=== PATIENT | male | born 1955 | race Caucasian/White ===

== ENCOUNTER 2018-09-10 07:22 | Day surgery (SDC) | payer OTHER ==
[~2018-09-10] VITALS: Ht 160 cm; Wt 86.3 kg
[2018-09-10] VITALS (18 sets, daily range): BP systolic 125–154; BP diastolic 68–80; PULSE 57–74; RESP 16–18; Ht 160 cm; Wt 86.3 kg
[~2018-09-10 07:22] MED LIST: CEFAZOLIN 2 GM/50 ML (PMX) 50 ML IVPB SCH
[2018-09-10] MEDS ORDERED: GEMF600T8 PO (07:56)
--- NOTE | 2018-09-10 10:25 | HPN ---
Date/Time of Note Date/Time of Note DATE: 09/10/18 TIME: 10:25 Interval H&P Admission Note Pt. seen H&P reviewed: No system changes EVELYNE PARRISH Sep 10, 2018 10:25
[2018-09-10] MEDS ORDERED: MIDAZOLAM 1 MG/ML 2 ML INJ ONE (11:39)
[2018-09-10] MEDS ORDERED: FENTAnyl 50 MCG/ML VIAL ONE ×2 (11:39→12:33)
--- NOTE | 2018-09-10 12:04 | PREAC ---
Date/Time of Note Date/Time of Note DATE: 09/10/18 TIME: 12:03 Anesthesia Eval and Record Evaluation Time Pre-Procedure Interview DATE: 09/10/18 TIME: 12:03 Age 63 Sex male NPO: 8 hrs Preoperative diagnosis right hydrocele Planned procedure right hydrocelectomy and right spermatocelectomy Past Medical History Past Medical History: Includes Cardio: Dyslipidemia GI: Obesity (bmi 33) Surgery & Anesthesia Issues No known issue Meds Anticoagulation: No Beta Mauro within 24 hr: No Reason Beta Mauro not given: Pt. not on B-Mauro Reported Medications Gemfibrozil* (Gemfibrozil*) 600 Mg Tablet, 600 MG PO BID, TAB 09/10/18 Current Medications Cefazolin Sodium/ Dextrose 50 ml @ 100 mls/hr PREOP IVPB ; Start 09/10/18 at 06:00; Stop 09/10/18 at 17:00 Meds reviewed: Yes Allergies Coded Allergies: No Known Allergy (Unverified , 09/10/18) Allergies Reviewed: Yes Labs/Studies Labs Reviewed: Reviewed by anesthesiologist test: N/A Studies: ECG, CXR Pre-procedure Exam Last vitals Vital Signs Date Temp Pulse Resp B/P (MAP) Pulse Ox O2 O2 Flow FiO2 Time Delivery Rate 09/10/18 97.9 57 16 137/77 95 Room Air 08:21 (97) Airway: Adequate mouth opening, Adequate thyromental dist Mallampati: Mallampati II Teeth: Normal (partial denture already out) Lung: Normal Heart: Normal ASA Physical Status ASA physical status: 2 Emergency: None Planned Anesthetic General/MAC: LMA Planned Pain Management Parenteral pain med, Local by surgeon Pre-operative Attestations Prior to commencing anesthesia and surgery, the patient was re-evaluated, there was verification of: *The patient's identity *The results of appropriate recent lab work and preoperative vital signs *The above evaluation not changing prior to induction *Anesthetic plan, risk benefits, alternative and complications discussed with patient/family; questions answered; patient/family understands, accepts and wishes to proceed. VAZQUEZ DEL REAL Sep 10, 2018 12:04
[2018-09-10] MEDS ORDERED: BUPIVACAINE 0.25% (MPF) 30 ML INJ ONE (12:06)
[2018-09-10] MEDS ORDERED: CEFAZOLIN 1 GM INJ ONE (12:33)
[2018-09-10] MEDS ORDERED: PROPOFOL 20 ML ONE (12:33)
[2018-09-10] MEDS ORDERED: LIDOCAINE 2% (SDV) 5 ML INJ ONE (12:33)
[2018-09-10] MEDS ORDERED: ONDANSETRON 4 MG INJ ONE (12:37)
[2018-09-10] MEDS ORDERED: DEXAMETHASONE 4 MG/ML 5 ML INJ ONE (12:37)
[2018-09-10] MEDS ORDERED: hydrALAzine 20 MG INJ IV PRN (13:30)
[2018-09-10] MEDS ORDERED: MEPERIDINE 25 MG INJ IV PRN (13:30)
[2018-09-10] MEDS ORDERED: HYDROmorphONE 1 MG/5 ML IV SYRINGE IV PRN ×3 (13:30)
[2018-09-10] MEDS ORDERED: ONDANSETRON 4 MG INJ IV PRN (13:30)
[2018-09-10] MEDS ORDERED: OXYCODONE/ACETAMINOPHEN (5/325) TAB PO PRN ×2 (13:30)
[2018-09-10] MEDS ORDERED: LABETALOL HCL 20MG INJ IV PRN (13:30)
--- NOTE | 2018-09-10 13:49 | PDOCDIS ---
Discharge Instructions DIAGNOSIS Discharge Diagnosis Spermatocele an hydrocele - complex CONDITION Preet Patient Condition: [id number] Good HOME CARE INSTRUCTIONS: Preet Diet Instructions: Bola Regular ACTIVITY: Preet Activity Restrictions: [id number] Slowly Increase Activity Preet Bathing Restrictions: [id number] Shower FOLLOW UP/APPOINTMENTS Follow-up Plan Follow up in office next week for removal of drain, call for date and time REFERRALS Preet Referring Provider: EVELYNE Bird OTHER ORDERS: Other Orders: Change dressing as needed there is a drain under the dressing keep wound dry until drain removed Scrotal elevation, keep scrotum higher than heart Light activity no sexual activity EVELYNE PARRISH Sep 10, 2018 13:49
--- NOTE | 2018-09-10 13:52 | OPR ---
Date/Time of Note Date/Time of Note DATE: 09/10/18 TIME: 13:50 Operative Report Procedure Date: Sep 10, 2018 Preoperative Diagnosis righty hydrocele - spermatocele - complex Postoperative Diagnosis same Operation/Procedure Performed right hydrocelectomy, spermatocectomy, lysis of adhesions Surgeon tito Entertainment Manager none Anesthesia Type: general Estimated Blood Loss: minimal Transfusion none Specimen hydrocele and spermatocele Grafts/Implants none Tubes/Drains 1/ " james Complications none Pt Condition Post Procedure: stable Disposition: PACU Indications hydrocele - spermatocele Procedure Description dict [id number] EVELYNE PARRISH Sep 10, 2018 13:52
--- NOTE | 2018-09-10 14:12 | PAC ---
Date/Time of Note Date/Time of Note DATE: 09/10/18 TIME: 14:12 Post-Anesthesia Notes Post-Anesthesia Note Last documented vital signs Vital Signs Date Temp Pulse Resp B/P (MAP) Pulse Ox O2 O2 Flow FiO2 Time Delivery Rate 09/10/18 98.7 13:47 09/10/18 65 17 138/75 99 Nasal 2.0 13:38 (96) Cannula Activity: WNL Respiratory function: WNL Cardiovascular function: WNL Mental status: Baseline Pain reasonably controlled: Yes Hydration appropriate: Yes Nausea/Vomiting absent: Yes VAZQUEZ DEL REAL Sep 10, 2018 14:12
--- NOTE | 2018-09-10 16:00 | OPR ---
DATE OF OPERATION: PREOPERATIVE DIAGNOSIS: Right hydrocele and right spermatocele. POSTOPERATIVE DIAGNOSIS: Markedly complex and adherent right spermatocele and hydrocele. PROCEDURE: Right hydrocelectomy and spermatocelectomy, lysis of adhesions. SURGEON: Evelyne Ni MD ANESTHESIA: General. COMPLICATIONS: None. FINDINGS: Large complex spermatocele and hydrocele, which are adherent to the surrounding tissues. ESTIMATED BLOOD LOSS: Less than 10 mL. DRAINS: 0.25-inch Karla drain. DESCRIPTION OF PROCEDURE: The patient was brought to the operating room and placed on the operating table in supine position. He was prepped and draped in the usual fashion after anesthesia was induce d. A timeout was undertaken. Appropriate pressure points were padded. He received preoperative bio logic therapy and sequential compression devices were applied. Physical examination demonstrates a very large right hemiscrotal mass which completely displaces the left testicle to the left side, ____ to palpate the right testicle. Additionally, the penis is compl etely concealed, likely secondary to the right hemiscrotal mass. A transverse incision was created o verlying the lateral aspect of the right hemiscrotum, which is extended anteriorly. This was taken d own through the dartos muscle down to the layer of the tunica vaginalis and tunica vaginalis was note d to be markedly thickened with a large amount of scar tissue and adherent tissue. No discrete plane s could be appreciated. With sharp and blunt dissection, the tunica vaginalis was from the surrounding structures and the large right hemiscrotal mass was delivered. On the anterior aspect o f the very thickened tunica, a 5 mm opening was created and 20 mL of clear fluid was drained. The va st majority of the mass did not decompress being consistent with an adherent spermatocele. The under lying mass was very adherent to the surrounding tissues, making this a complex case. The testicle wa s noted to be in the posterior inferior aspect and throughout the entire case, care was taken to the underlying testicle and cord structures. An attempt to release the tunica vaginalis off of this adhe rent spermatocele, the original plane was unable to be performed, and thus there was a clear plane on a more lateral aspect. On the more lateral aspect of the right hemiscrotum, a new incision was crea antonieta. The tunica vaginalis thus exposing a very large and adherent spermatocele. An avascular plane was developed, which allowed for the spermatocele to be off of the hydrocele sac with care being taken at all times to the underlying testicle and cord structure, which was well preserved thro ughout the entire case and no time was there any violation of the blood supply to the testicle. With careful dissection, the large spermatocele was from the surrounding structures with a comm unication to the epididymis being identified at the tail of the epididymis, which was then doubly lig ated with a 3-0 chromic suture and then with the Metzenbaum scissors. A portion of the ant erior aspect of the tunica vaginalis was excised and the newly posed edges were then everted and reap proximated with running stitch of 3-0 Vicryl suture. In the dependent portion of the scrotum, a 5 mm incision was created with a 15 blade scalpel and a 0.25-inch Karla drain was placed through this r egion and attached to the skin with 0 silk suture. Pinpoint hemostasis was obtained. The testicle a nd cord structure was repositioned back in its normal anatomical position, which allowed for closure in 2 layers, the first layer was closed with a running stitch of 3-0 Vicryl suture and then the skin edges were reapproximated with interrupted 3-0 chromic sutures. A total of 10 mL of 0.25% Marcaine w ithout epinephrine was instilled into the wound. Sterile dressing with fluffs and a scrotal support were applied. He was transferred to recovery room in stable condition and will be discharged home [facility] today on [place] 5/325 one tab p.o. q.6 hours p.r.n., dispense #25, no refill. He will follow up i n the office next week for removal of drain. Specimen was sent as spermatocele and hydrocele sac. T he sponge and needle count were all correct. Dictated By: EVELYNE HANKINS/NTS Conf#: [id number] DID#: [id number]
== END 2018-09-10 16:08 | disposition home or self-care (01) ==
LOC: SDS 07:22
PROVIDERS: ATTEND Urology
DX: N43.3 Hydrocele, unspecified (principal); N43.41 Spermatocele of epididymis, single; E78.5 Hyperlipidemia, unspecified
CPT/HCPCS: 54840; 88302; 88304; J0690; J1100; J2250; J2405; J3010; Z7512; Z7610